=== PATIENT | female | born 1935 | race Caucasian/White ===

== ENCOUNTER → 2017-08-22 | Outpatient (CLI) | payer MEDICARE ==
[2016-12-25 12:42] VITALS: BMI 14.1
[~2017-08-22] MED LIST: AML5 PO; ASPI81TA94 PO; BENZ100C26 PO; CALC600T63 PO; CEFD300C35 PO; CHOL100034; CIP500 PO; CIPR-212 PO; DILT-115 PO; DILT240C84 PO; DOC100 PO; FLUTR; FORM20VI IH; Guaifenesin PO; HYDR-2946 PO; LEVO-85 PO; Levalbuterol Hcl NEB; METH1TAB65 PO; METO25TA23 PO; MIRT-27 PO; MIRT7.5T2 PO; MONT10TA PO; OXYGEN; PHENA200 PO; POTC540 PO; PRED-1 PO; PRED20TA6 PO; Polyethylene Glycol PO; SIMV10TA98 PO; TAM4 PO; TOLT4CAP13 PO
[2017-08-22 11:31] LABS: PLATELET COUNT, AUTOMATED 219 K/uL (150-450)
--- NOTE | 2017-08-22 12:24 | RADIOLOGY IMAGING REPORT ---
FACILITY: [facility] - [place] PATIENT NAME: Yamile Melton : 1935 MR: [id number] V: [id number] EXAM DATE: ORDERING PHYSICIAN: TRISHA PATRICK TECHNOLOGIST: Location: [facility] - [place] Patient: Yamile Melton : 1935 Visit/Account:[id number] Date of Sevice: 08/22/2017 ABDOMEN PELVIS ESWL CYSTO W/O HISTORY: Renal Stones. Status post ESWL TECHNIQUE: Axial images acquired through the abdomen/pelvis. Coronal and sagittal reformatting also performed. No IV contrast administered. One of the following dose optimization techniques was utili zed in the performance of this exam: Automated exposure control; adjustment of the mA and/or kV accor ding to the patient's size; or use of an iterative reconstruction technique. Specific details can b e referenced in the facility's radiology CT exam operational policy. COMPARISON: Comparison CTA abdomen performed 11/06/2016 FINDINGS: Visualized lung bases: There is advanced emphysematous changes seen at the lung bases and discoid sc arring at the right lung base. This is stable from the previous study. No developing pulmonary nodule s are seen. Hepatobiliary: There is a 0.8 cm hypodense lesion in the right liver lobe. Prior study demonstrated centripetal enhancement and this is compatible to small benign hemangioma. Spleen: Negative. Adrenals: Negative. Pancreas: Negative. Kidneys ureters and bladder: The previously seen extensive bilateral nephrolithiasis as improved stat us post ESWL. There has been interval development of advanced right-sided hydronephrosis and ureterec tasis which terminates in a series of stones obstructing the right ureter at the level of the upper p claire. This collection of stones is best seen on coronal image [id number]. The largest single stone measur es 1.0 x 0.6 cm diameter. In the right kidney there are several additional small retained stones seen and in the left kidney th ere are also several nonobstructive stones, the largest measuring 4 mm diameter.. Genitalia: Status post remote hysterectomy. There is a 2.5 cm simple appearing cyst in the expected region of the right ovary and this probably represents a benign ovarian cyst although is nonspecific. GI: There is a somewhat prominent amount of fecal material seen to the colon which is nondistended. No acute GI pathology identified. Vessels/spaces/nodes: This patient is and advanced vasculopath. There is very extensive calcificatio n seen in the suprarenal abdominal aorta, celiac and superior mesenteric arteries and the renal arter ies. There is a very large bilobed infrarenal abdominal aortic aneurysm measuring approximately 5.4 x 6.2 cm diameter at its widest point with a left lateral eccentric bulge best appreciated axial image 50. The aneurysm has enlarged slightly since the previous study. There is a very extensive vascular calcifications through the iliac arteries with complete occlusion of the right common iliac artery wh ich is confirmed on the previous CTA. Bones/soft tissues: Negative. Additional findings: None pertinent. IMPRESSION: Status post ESWL there is a collection of stones in the right ureter located in the upper pelvis whic h is obstructing the right renal collecting system. There is advanced right-sided hydronephrosis and ureterectasis proximal to the stones. The largest single ureteral stone measures 1 cm maximum dimensi on. Bilateral nephrolithiasis less extensive than the previous study status postESWL. This patient is an advanced vasculopath. There is a very large infrarenal bilobed aortic aneurysm whi ch appears of slightly increased in size. There is extensive calcific plaque through all of the other major arteries as detailed above with occlusion of the right common iliac artery. Advanced emphysema. Additional benign findings per above. Report Dictated By: Bill Bal MD at 08/22/2017 11:56 AM Report E-Signed By: Bill Bal MD at 08/22/2017 12:21 PM WSN:[id number]
== END ==
LOC: CT 01:11
PROVIDERS: ATTEND Urology
DX: N20.0 Calculus of kidney (principal); N13.4 Hydroureter; N13.30 Unspecified hydronephrosis; J43.9 Emphysema, unspecified; R91.8 Other nonspecific abnormal finding of lung field; N83.201 Unspecified ovarian cyst, right side; I71.4 Abdominal aortic aneurysm, without rupture
CPT/HCPCS: 36415; 74176; 82374; 82435; 82565; 84132; 84295; 85025

== ENCOUNTER → 2017-09-12 | Outpatient (CLI) | payer MEDICARE ==
[2016-12-25 12:42] VITALS: BMI 14.1
--- NOTE | 2017-09-12 16:21 | EKG ---
FACILITY: [facility] [place] PATIENT NAME: MAXWELL HERRON : [id number] MR: [id number] V: [id number] EXAM DATE: ORDERING PHYSICIAN: REYNA RIOS TECHNOLOGIST: Test Reason : Blood Pressure : / mmHG Vent. Rate : 068 BPM Atrial Rate : 068 BPM P-R Int : 132 ms QRS Dur : 072 ms QT Int : 416 ms P-R-T Axes : 043 035 047 degrees QTc Int : 442 ms Normal sinus rhythm Low voltage QRS and baseline artifact in the limb leads make it difficult to interpret, but there is no obvious ST abnormalities Septal infarct , age undetermined When compared with ECG of 31-JAN-2014 20:41, Low voltage QRS with baseline artifact makes comparison difficult Confirmed by YOHAN FISH ([id number]) on 09/12/2017 8:08:36 PM Referred By: Confirmed By:YOHAN FISH
--- NOTE | 2017-09-12 16:39 | RADIOLOGY IMAGING REPORT ---
FACILITY: [facility] - [place] PATIENT NAME: Yamile Melton : 1935 MR: [id number] V: [id number] EXAM DATE: ORDERING PHYSICIAN: REYNA RIOS TECHNOLOGIST: Location: [facility] - [place] Patient: Yamile Melton : 1935 Visit/Account:[id number] Date of Sevice: 09/12/2017 Exam type: CHEST PA AND LAT History: Preop cardio exam, COPD, respiratory failure Comparison: December 24, 2016. Findings: Severe emphysematous changes again seen throughout the lungs. No evidence of acute pulmonary consoli dation. Cardiac silhouette is normal in size. There is marked ectasia the thoracic aorta. Moderate vascular calcifications are seen in the thoracic aorta. There Is a curvilinear calcification in the left paraspinal region in the upper abdomen appears some are to the prior study is presumably relate d to patient's known abdominal aortic aneurysm IMPRESSION: 1. Severe emphysematous changes throughout the lungs although no evidence of acute pulmonary consoli dation Curvilinear calcification in the upper abdomen is presumably related to patient's known abdominal aor tic aneurysm Report Dictated By: Nelida Wise MD at 09/12/2017 4:31 PM Report E-Signed By: Nelida Wise MD at 09/12/2017 4:35 PM WSN:[id number]
--- NOTE | 2017-09-13 12:46 | RADIOLOGY IMAGING REPORT ---
FACILITY: [facility] [place] PATIENT NAME: MAXWELL HERRON : [id number] MR: [id number] V: [id number] EXAM DATE: [id number] ORDERING PHYSICIAN: REYNA RIOS TECHNOLOGIST: Sawyer [place] EXAMINATION:TWO-DIMENSIONAL ECHOCARDIOGRAPH REASON:CHF 2D Measurements (normal values in centimeters) LV endLV endRV endVent.LV PostAorticLeftPercent DiastolicSystolicDiastolicSeptumWallRootAtriumShortening (3.5-5.7)(0.9-2.6)(0.6-1.1)(0.6-1.1)(2.0-3.7)(1.9-4.0)(25-35%) [id number] STROKE VOLUME: 21ml ESTIMATED EJECTION FRACTION:61% PARASTERNAL LONG AXIS: Overall left ventricular systolic function does appear to be normal. Aortic valve appears to be sclerotic, possibly mildly stenotic. Mild concentric left ventricular thickening is noted with no evidence of any outflow tract obstruction. There is mild calcification of the anterior leaflet of the mitral valve. Mild prolapse posteriorly of the mitral valve. Color examination of the aortic valve reveals some aortic insufficiency. Color examination of the mitral valve reveals some mitral insufficiency present. PARASTERNAL SHORT AXIS: Overall left ventricular function again appears to be normal with mild concentric left ventricular thickening present. Aortic valve was probably trileaflet in configuration although difficult to see. There is some aortic sclerosis with possibly some borderline aortic stenosis. There is some aortic insufficiency present. Color examination of the tricuspid valve reveals a moderate amount of tricuspid insufficiency. The tricuspid regurgitation Vmax measured 3.6m/sec. Color examination of the pulmonic valve reveals a moderate amount of pulmonic insufficiency. APICAL FOUR AND TWO CHAMBER: Normal left ventricular ejection fraction. Mild mitral annular calcification with mild prolapse of the posterior leaflet of the mitral valve. Tricuspid valve also appears to be mildly sclerotic. Right ventricular function appears to be normal & the TAPSE is measured at 1.9 which is within normal ranges. Occasional ectopic beat is noted. Aortic valve area was measured at 1.7cm2 with a mean pressure gradient across the valve of 5mm Hg. & a dimension index of .7 indicating the aortic valve is lower range of normal in size. Mitral valve area was measured within normal ranges at 2.1cm2. Left atrial volume is mildly increased at 32ml/m2 & right atrial volume is measured within normal ranges at 25ml/m2. SUBCOSTAL VIEW: No pericardial effusion was noted. No atrioseptal or ventriculoseptal defects were appreciated. Moderate amount of mitral & tricuspid insufficiency was noted. Doppler examination of the mitral valve in diastole does reveal the A wave > E wave. Aortic insufficiency pressure half time was measured at 747msec. The aortic root was measured at 4.0 & there is some plaquing seen. There is also an abdominal aortic aneurysm noted measuring 5.1cm. OVERALL IMPRESSION: 1. Normal left ventricular ejection fraction of 60% with a Grade 1/4 decrease in diastolic function. 2. There is mild concentric left ventricular thickening with no evidence for any outflow tract obstruction. 3. There is mild left atrial enlargement with the other chamber sizes being normal. 4. 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 5. Trileaflet aortic valve with aortic sclerosis & aortic valve area which is at the lower ranges of no.at 1.7cm2 with a mean pressure gradient across the valve of 5mm Hg & a dimension index of .7. There is a mild amount of aortic insufficiency present. 6. A moderate amount of pulmonic insufficiency present. The pulmonic valve was not seen well. 7. A moderate amount of mitral & tricuspid insufficiency. There is mild prolapse of the posterior leaflet of the mitral valve & mitral annular calcification but no stenosis of the mitral valve. The estimated right ventricular systolic pressure is increased at 57mm Hg which does include an estimated right atrial pressure of 3mm Hg indicating a moderate to borderline severe pulmonary hypertension & increased right ventricular systolic pressures. 8. Aortic root is dilated at 4.0cm & the abdominal aorta was noted to be 5.1cm.indicating an . Aortic aneurysm. There is also plaquing noted and a questionable thrombus in the aorta as well. Dictated by: Brian Daigle M.D. on 09/13/2017 at 9:35 Transcribed by: RILEY on 09/13/2017 at 10:12 Approved by: Brian Daigle M.D. on 09/13/2017 at 12:45 [facility]
== END ==
LOC: US 01:59
PROVIDERS: ATTEND Nurse Practitioner Family
DX: Z01.810 Encounter for preprocedural cardiovascular examination (principal); Z01.811 Encounter for preprocedural respiratory examination; I77.810 Thoracic aortic ectasia; I70.0 Atherosclerosis of aorta; J43.9 Emphysema, unspecified; I49.01 Ventricular fibrillation; I51.7 Cardiomegaly; I35.9 Nonrheumatic aortic valve disorder, unspecified; I35.1 Nonrheumatic aortic (valve) insufficiency; I37.1 Nonrheumatic pulmonary valve insufficiency; I34.0 Nonrheumatic mitral (valve) insufficiency; I07.1 Rheumatic tricuspid insufficiency; I34.1 Nonrheumatic mitral (valve) prolapse; I27.20 Pulmonary hypertension, unspecified
CPT/HCPCS: 71046; 93005; 93306

== ENCOUNTER → 2017-11-18 | Outpatient (CLI) | payer MEDICARE ==
[2016-12-25 12:42] VITALS: BMI 14.1
[2017-11-18 15:11] LABS: PLATELET COUNT, AUTOMATED 194 K/uL (150-450)
== END ==
LOC: LAB 14:21
PROVIDERS: ATTEND Nurse Practitioner Family
DX: D63.1 Anemia in chronic kidney disease (principal); D53.9 Nutritional anemia, unspecified; N18.9 Chronic kidney disease, unspecified; J44.9 Chronic obstructive pulmonary disease, unspecified; I49.9 Cardiac arrhythmia, unspecified; E83.19 Other disorders of iron metabolism; E44.1 Mild protein-calorie malnutrition; D51.0 Vitamin B12 deficiency anemia due to intrinsic factor deficiency; E55.9 Vitamin D deficiency, unspecified
CPT/HCPCS: 36415; 82040; 82247; 82306; 82310; 82374; 82435; 82565; 82607; 82728; 82947; 84075; 84132; 84155; 84295; 84443; 84450; 84460; 84520; 85025

== ENCOUNTER → 2018-02-17 | Outpatient (CLI) | payer MEDICARE ==
[2016-12-25 12:42] VITALS: BMI 14.1
== END ==
LOC: LAB 13:20
PROVIDERS: ATTEND Nurse Practitioner Family
DX: E87.8 Other disorders of electrolyte and fluid balance, not elsewhere classified (principal)
CPT/HCPCS: 36415; 82040; 82247; 82310; 82374; 82435; 82565; 82947; 84075; 84132; 84155; 84295; 84450; 84460; 84520

== ENCOUNTER → 2018-06-02 | Outpatient (CLI) | payer MEDICARE ==
[2016-12-25 12:42] VITALS: BMI 14.1
== END ==
LOC: LAB 13:17
PROVIDERS: ATTEND Nurse Practitioner Family
DX: N18.3 Chronic kidney disease, stage 3 (moderate) (principal); D63.1 Anemia in chronic kidney disease; J44.9 Chronic obstructive pulmonary disease, unspecified; E53.8 Deficiency of other specified B group vitamins
CPT/HCPCS: 36415; 82040; 82247; 82310; 82374; 82435; 82565; 82607; 82947; 84075; 84132; 84155; 84295; 84443; 84450; 84460; 84520; 85027

== ENCOUNTER → 2018-09-08 | Outpatient (CLI) | payer MEDICARE ==
[2016-12-25 12:42] VITALS: BMI 14.1
== END ==
LOC: LAB 13:15
PROVIDERS: ATTEND Nurse Practitioner Family
DX: E87.8 Other disorders of electrolyte and fluid balance, not elsewhere classified (principal); R53.81 Other malaise; D50.9 Iron deficiency anemia, unspecified
CPT/HCPCS: 36415; 82040; 82247; 82310; 82374; 82435; 82565; 82728; 82947; 84075; 84132; 84155; 84295; 84450; 84460; 84520; 85027

== ENCOUNTER → 2018-12-05 | Outpatient (CLI) | payer MEDICARE ==
[2016-12-25 12:42] VITALS: BMI 14.1
[~2018-12-05] MED LIST changes: -MIRT-27 PO; +MIRT15TA11 PO
[2018-12-05 16:01] LABS: PLATELET COUNT, AUTOMATED 153 K/uL (150-450)
== END ==
LOC: LAB 15:19
PROVIDERS: ATTEND Nurse Practitioner Family
DX: R53.81 Other malaise (principal); E87.8 Other disorders of electrolyte and fluid balance, not elsewhere classified; D50.9 Iron deficiency anemia, unspecified
CPT/HCPCS: 36415; 82040; 82247; 82310; 82374; 82435; 82565; 82728; 82947; 84075; 84132; 84155; 84295; 84450; 84460; 84520; 85025

== ENCOUNTER → 2019-03-06 | Outpatient (CLI) | payer MEDICARE ==
[2016-12-25 12:42] VITALS: BMI 14.1
[2019-03-06 13:06] LABS: PLATELET COUNT, AUTOMATED 195 K/uL (150-450)
== END ==
LOC: LAB 12:25
PROVIDERS: ATTEND Nurse Practitioner Family
DX: R53.81 Other malaise (principal); E87.8 Other disorders of electrolyte and fluid balance, not elsewhere classified; D50.9 Iron deficiency anemia, unspecified
CPT/HCPCS: 36415; 82040; 82247; 82310; 82374; 82435; 82565; 82728; 82947; 84075; 84132; 84155; 84295; 84450; 84460; 84520; 85025